=== PATIENT | female | born 1955 | race African-American/Black ===

== ENCOUNTER 2021-12-23 00:33 | Day surgery (SDC) | payer MEDICARE, SELFPAY ==
[2021-12-08 15:53] VITALS: BMI 37.0
--- NOTE | 2021-12-22 15:45 | PM.HPGS ---
History of Present Illness History of Present Illness Consent: Risks, benefits, and alternatives have been discussed and questions answered. Patient agrees to proceed with procedure. Chief complaint: melena Narrative: Dyan Infante is a 66 year old female Third for colon cancer screening. Her last colonoscopy was 11 years ago. Prior to that, when she had had a hemorrhoidectomy, she was told that polyps were removed Review of Systems Review of Systems: All systems reviewed & are unremarkable except as noted in HPI and below PMFSH Past Medical History Medical History Anemia, unspecified Chronic pain syndrome Essential (primary) hypertension Hematochezia Hypothyroidism Knee osteoarthritis Mixed hyperlipidemia Type 2 diabetes mellitus without complications Family History Family History Mother Hypertension Family history of diabetes mellitus in first degree relative Family history of heart disease in male family member before age 55 Father Family history of lung cancer Other Diabetes mellitus Family history of kidney disease Social History Social History Smoking status: Never smoker Alcohol intake: current Drinks per week: 1 Substance use: never Substance use type: does not use Living arrangements: with family Additional living arrangements comments: sister Additional occupation/education comments: disability Gender identity (if verbalized by the patient): Female Sexual Orientation (if Verbalized by the Patient): Straight or Heterosexual Spiritual care concerns: No Agree to blood products: Yes Meds Home Medications and Allergies Home Medications Medication Instructions Recorded Confirmed Type amlodipine 10 mg tablet 10 mg PO DAILY #90 tablet 11/04/21 12/08/21 Rx atorvastatin 20 mg tablet 20 mg PO DAILY #90 tablet 11/04/21 12/08/21 Rx metformin 500 mg tablet 500 mg PO DAILY #90 tablet 11/04/21 12/08/21 Rx diphenhydramine HCl [Benadryl] 25 mg PO HS 12/08/21 12/08/21 History levothyroxine 50 mcg PO DAILY 12/08/21 12/08/21 History naproxen 500 mg PO DAILY 12/08/21 12/08/21 History olopatadine [Pataday Once Daily 1 drp EACH EYE DAILY PRN 12/08/21 12/08/21 History Relief] triamterene-hydrochlorothiazid 1 tablet PO DAILY 12/08/21 12/08/21 History Allergies Allergy/AdvReac Type Severity Reaction Status Date / Time No Known Allergies Allergy Verified 12/23/21 06:20 Exam Resp: Auscultation: clear to auscultation bilaterally Cardio: Rate: regular rate Rhythm: regular rhythm GI: GI Palp: Yes Soft to palpation and No Tenderness to palpation present (GI) Assessment and Plan Assessment and plan (1) Colon cancer screening: Code(s): Z12.11 - Encounter for screening for malignant neoplasm of colon Status: Acute Assessment and Plan: Colonoscopy with possible biopsy or polypectomy or cautery or injection of substances.
[2021-12-23 06:22] VITALS: BP 172/72; PULSE 102; RESP 18; TEMP 36.4; O2SAT 99
[2021-12-23] MEDS: LACTATED RINGERS 1,000 ML 150 ML IV CONT (06:33)
[2021-12-23 06:35] LABS: Glucose Point of Care 134 mg/dl (65-105)
--- NOTE | 2021-12-23 07:16 | WPDANESEPPF ---
Anes - Initial Pre Proc Eval Procedure: Operation Date: 12/23/21 07:30 Proposed Procedures p Colonoscopy - Cresencio Sanchez MD Date/Time: 12/23/21 07:16 Surgeon: Cresencio Sanchez MD Pre Op Diagnosis: melena Patient Data Age: 66 Gender: F Height: 1.57 m Weight: 93 kg Last Vital Signs Temp 36.4 C 12/23/21 06:22 Pulse 102 H 12/23/21 06:22 Resp 18 12/23/21 06:22 BP 172/72 H 12/23/21 06:22 Pulse Ox 99 12/23/21 06:22 Allergies Allergy/AdvReac Type Severity Reaction Status Date / Time No Known Allergies Allergy Verified 12/23/21 06:20 Home Medications Medication Instructions Recorded Confirmed Type amlodipine 10 mg tablet 10 mg PO DAILY #90 tablet 11/04/21 12/08/21 Rx atorvastatin 20 mg tablet 20 mg PO DAILY #90 tablet 11/04/21 12/08/21 Rx metformin 500 mg tablet 500 mg PO DAILY #90 tablet 11/04/21 12/08/21 Rx diphenhydramine HCl [Benadryl] 25 mg PO HS 12/08/21 12/08/21 History levothyroxine 50 mcg PO DAILY 12/08/21 12/08/21 History naproxen 500 mg PO DAILY 12/08/21 12/08/21 History olopatadine [Pataday Once Daily 1 drp EACH EYE DAILY PRN 12/08/21 12/08/21 History Relief] triamterene-hydrochlorothiazid 1 tablet PO DAILY 12/08/21 12/08/21 History Laboratory Tests 12/23/21 06:26 POC Capillary Glucose 134 mg/dl H mg/dl (65-105) Patient hx anesthesia problems: none Family hx anesthesia problems: none Results Review: All pre-operative results and documents have been reviewed as part of the pre-operative evaluation. [facility] Past Medical History Medical History Anemia, unspecified Chronic pain syndrome Essential (primary) hypertension Hematochezia Hypothyroidism Knee osteoarthritis Mixed hyperlipidemia Type 2 diabetes mellitus without complications Family History Family History Mother Hypertension Family history of diabetes mellitus in first degree relative Family history of heart disease in male family member before age 55 Father Family history of lung cancer Other Diabetes mellitus Family history of kidney disease Social History Social History Smoking status: Never smoker Alcohol intake: current Drinks per week: 1 Substance use: never Substance use type: does not use Living arrangements: with family Additional living arrangements comments: sister Additional occupation/education comments: disability Gender identity (if verbalized by the patient): Female Sexual Orientation (if Verbalized by the Patient): Straight or Heterosexual Spiritual care concerns: No Agree to blood products: Yes Anes - Eval Final PreProcedure Day of Procedure 12/23/21 07:16 Patient weight: obese Heart: regular rate and rhythm Lungs: clear to auscultation Airway: Mallampati scale class II Neurological: alert and oriented Last oral intake: >/= 8 hours ASA classification: III Emergent: no Anesthetic plan: proceed Anesthesia type and monitoring: general GIVS and standard monitoring Results Review: All pre-operative results and documents have been reviewed as part of the pre-operative evaluation. Informed Consent: The patient's anesthetic plan and its attendant risks and benefits were discussed with the patient/family/POA. Questions were solicited and answers provided to the satisfaction of the patient/family/POA.
[2021-12-23 07:51] VITALS: BP 137/55; PULSE 78; RESP 17; O2SAT 98
[2021-12-23 08:01] VITALS: BP 137/73; PULSE 79; RESP 21; O2SAT 100
[2021-12-23 08:11] VITALS: BP 129/75; PULSE 77; RESP 24; O2SAT 100
== END 2021-12-23 08:20 | disposition home or self-care (01) ==
PROVIDERS: PCP Family Medicine; Visit Provider Internal Medicine Gastroenterology
PROC: 0DJD8ZZ Inspection of Lower Intestinal Tract, Via Natural or Artificial Opening Endoscopic (ICD-10-PCS; CPT 45378; principal; 2021-12-23 07:30)
DX: Z12.11 Encounter for screening for malignant neoplasm of colon (principal); K57.30 Diverticulosis of large intestine without perforation or abscess without bleeding; K92.1 Melena; Z79.84 Long term (current) use of oral hypoglycemic drugs; E03.9 Hypothyroidism, unspecified; D64.9 Anemia, unspecified; I10 Essential (primary) hypertension; E78.5 Hyperlipidemia, unspecified; E11.9 Type 2 diabetes mellitus without complications; E66.9 Obesity, unspecified; Z68.37 Body mass index [BMI] 37.0-37.9, adult
CPT/HCPCS: G0121; 82948; J2704; J7120

== ENCOUNTER 2024-01-25 07:43 | Outpatient (CLI) | payer MEDICARE, SELFPAY ==
--- NOTE | ~2024-01-25 | MM_ITS ---
EXAMINATION: MM screening [facility] BI w rj HISTORY: Screening mammogram TECHNIQUE: Craniocaudal and mediolateral oblique 3-D tomosynthesis images were obtained and synthetic 2-D images were generated. CAD analysis was submitted and interpreted. COMPARISON: February 08, 2010 bilateral screening mammogram BREAST PARENCHYMAL COMPOSITION: The breasts are almost entirely fatty. FINDINGS: There is a new approximately 4 x 6 mm mass in the midline in the deep mid to lower left sanchez ast. Left adnexa mammogram and targeted left breast ultrasound examination are recommended. Otherwise there is no evidence of suspicious mass, calcification, or architectural distortion to sugg est malignancy in either breast. There has been no other suspicious interval change. IMPRESSION: 1. New 4 x 6 mm mass in the midline in the deep mid and lower left breast 2. Diagnostic left mammogram and left breast ultrasound examination are recommended BI-RADS Category 0: Incomplete: Needs additional imaging evaluation. Reviewed, dictated and finalized at location A. IMPRESSION: 1. New 4 x 6 mm mass in the midline in the deep mid and lower left breast 2. Diagnostic left mammogram and left breast ultrasound examination are recomme nded BI-RADS Category 0: Incomplete: Needs additional imaging evaluation.
== END 2024-01-25 07:44 | disposition home or self-care (01) ==
LOC: ANHIMG 07:45
PROVIDERS: PCP Family Medicine; Visit Provider Family Medicine
DX: Z12.31 Encounter for screening mammogram for malignant neoplasm of breast (principal); N63.20 Unspecified lump in the left breast, unspecified quadrant; R92.8 Other abnormal and inconclusive findings on diagnostic imaging of breast
CPT/HCPCS: 77063; 77067

== ENCOUNTER 2024-02-27 12:42 | Outpatient (CLI) | payer MEDICARE, SELFPAY ==
--- NOTE | ~2024-02-27 | MMUS_ITS ---
EXAMINATION: MM diagnostic mukund LT w rj, US breast LT limited HISTORY: Follow-up left breast mass TECHNIQUE: Additional 3-D tomosynthesis images of the left breast were performed and synthetic 2-D im ages were generated. CAD analysis was submitted and interpreted. High resolution Limited left breast ultrasound was performed. COMPARISON: 01/25/2024 BREAST PARENCHYMAL COMPOSITION: Not dense: There are scattered areas of fibroglandular density. FINDINGS: MAMMOGRAPHIC FINDINGS: There is a small mass in the lower central aspect of the left breast, middle-posterior depth. This ma ss appears to have central lucency on mediolateral view, most likely benign intramammary lymph node. ULTRASOUND: Limited left breast ultrasound: Normal heterogeneous echotexture. No discrete mass identified to ryann espond to the mammographic finding. IMPRESSION: 1. Probable benign left breast mass without sonographic correlate. 2. Recommend 6 month follow-up diagnostic left mammogram. BI-RADS category 3, probably benign findings. Reviewed, dictated and finalized at location B. IMPRESSION: 1. Probable benign left breast mass without sonographic correlate. 2. Recommend 6 month follow-up diagnostic left mammogram. BI-RADS category 3, probably benign findings.
== END 2024-02-27 12:43 | disposition home or self-care (01) ==
LOC: ANHIMG 12:46
PROVIDERS: PCP Family Medicine; Visit Provider Physician Assistant
DX: R92.8 Other abnormal and inconclusive findings on diagnostic imaging of breast (principal)
CPT/HCPCS: 76642; 77061; 77065; G0279

== ENCOUNTER 2024-06-19 16:39 | Outpatient (CLI) | payer MEDICARE, SELFPAY ==
--- NOTE | ~2024-06-19 | XR_ITS ---
[id number] 06/19/2024 16:55 Indication: Left foot pain Procedure: 4 views left foot Comparison: No prior studies for comparison. Findings: There is mild polyarticular osteoarthritis. There are small degenerative calcaneal enthesop hytes. Lisfranc joint intact. No fracture or traumatic malalignment. No foreign bodies. Impression: 1: Mild polyarticular osteoarthritis, most advanced at the talonavicular and first MTP joints. Reviewed, dictated and finalized at location B. Impression: 1: Mild polyarticular osteoarthritis, most advanced at the talonavicular and fi rst MTP joints.
== END 2024-06-19 16:40 ==
LOC: MICIMG 16:40
DX: M79.672 Pain in left foot (principal); M19.072 Primary osteoarthritis, left ankle and foot
CPT/HCPCS: 73630

== ENCOUNTER 2024-08-29 11:10 | Outpatient (CLI) | payer MEDICARE, SELFPAY ==
--- NOTE | ~2024-08-29 | MM_ITS ---
EXAMINATION: MM diagnostic mukund LT w rj HISTORY: Six-month follow-up of probably benign left breast density TECHNIQUE: 3-D tomosynthesis Spot compression images of the left breast were performed and synthetic 2-D images were generated. CAD analysis was submitted and interpreted. COMPARISON: 02/27/2024 BREAST PARENCHYMAL COMPOSITION:Not Dense. There are scattered areas of fibroglandular density. FINDINGS: Stable tiny mass in the posterior, lower left breast again noted. No suspicious mass lesion or distortion seen. No suspicious microcalcifications. IMPRESSION: Stable very small circumscribed low-density mass in the lower, posterior left breast, most compatible with benign finding. Return to screening mammography advised. BI-RADS Category 2: Benign finding(s). Reviewed, dictated and finalized at location M. IMPRESSION: Stable very small circumscribed low-density mass in the lower, posterior left b reast, most compatible with benign finding. Return to screening mammography adv ised. BI-RADS Category 2: Benign finding(s).
== END 2024-08-29 11:11 | disposition home or self-care (01) ==
PROVIDERS: PCP Family Medicine; Visit Provider Family Medicine
DX: R92.8 Other abnormal and inconclusive findings on diagnostic imaging of breast (principal)
CPT/HCPCS: 77061; 77065; G0279